=== PATIENT | male | born 1955 | race Caucasian/White ===

== ENCOUNTER 2019-11-19 14:52 | Outpatient (RCR) | payer OTHER, SELFPAY | END 2019-12-10 23:59 | disposition home or self-care (01) | LOC: CR 14:52 | PROVIDERS: Family Provider Internal Medicine; PCP Internal Medicine; Referring Provider Internal Medicine Cardiovascular Disease; Visit Provider Internal Medicine Cardiovascular Disease | DX: I25.10 Atherosclerotic heart disease of native coronary artery without angina pectoris (principal); Z95.5 Presence of coronary angioplasty implant and graft | CPT/HCPCS: 93798 ==

== ENCOUNTER 2019-12-13 | Outpatient (RCR) | payer OTHER, SELFPAY | END 2020-01-20 | disposition home or self-care (01) | LOC: CR | PROVIDERS: PCP Internal Medicine; Visit Provider Internal Medicine Cardiovascular Disease | DX: Z95.5 Presence of coronary angioplasty implant and graft (principal) | CPT/HCPCS: 93798 ==

== ENCOUNTER 2020-03-01 09:31 | Outpatient (CLI) | payer OTHER, SELFPAY ==
--- NOTE | 2020-03-01 09:45 | CT_ITS ---
WS: [id number] CT CERVICAL SPINE HISTORY: Neck pain TECHNIQUE: Contiguous 2.5 mm axial imaging performed through the entire cervical spine. Sagittal and coronal reformats also performed. All CT scans at [facility] use at least one of these do se optimization techniques: automated exposure control; mA and/or kV adjustment per patient size (inc ludes targeted exams where dose is matched to clinical indication); or iterative reconstruction. DLP: 1530.33 mGycm COMPARISON: 11/02/2019 Mild straightening of the normal cervical lordosis. No fractures. Moderate degenerative disc disease at C4-5, C5-6 and C6-7. Large osteophytes extend posteriorly towards the ventral thecal sac. Most sig nificant at the C5-6 level with osteophytes measuring up to 5.1 mm. Craniocervical junction on the la teral masses of C1 and C2 are intact. C2-C3: Osteophytic ridging and facet joint arthritis, greatest on the LEFT. Central shallow disc prot rusion. Moderate LEFT foraminal stenosis. C3-C4: Marked hypertrophy of the LEFT facet joint. Osteophytic ridging around the vertebral bodies wi th severe LEFT and mild RIGHT foraminal stenosis. C4-C5: Marked osteophytic ridging around the vertebral bodies with encroachment upon the ventral thec al sac. There is a shallow central disc protrusion. Mild bilateral facet joint arthritis. Severe cent ral and bilateral foraminal stenosis. C5-C6: Severe osteophytic ridging. Flattening and deformity central canal and cervical cord. Mild fac et joint arthritis. Severe central and bilateral foraminal stenosis. C6-C7: Moderate osteophytic ridging around the vertebral bodies with encroachment upon the ventral th ecal sac. Moderate central and bilateral foraminal stenosis. C7-T1: Mild osteophytic ridging with only mild foraminal stenosis. Soft tissues are normal. Lung apices are clear. CT/CT cervical spin wo con* [id number] IMPRESSION: 1. Severe moderate to severe multilevel stenoses throughout the cervical spine . Similar findings as compared to the MRI from 11/02/2019. 2. Severe central and bilateral foraminal stenosis at C4-5 and C5-6. Predomina ntly due to osteophytic ridging and bony hypertrophy. 3. Moderate central and bilateral foraminal stenosis at C6-7. 4. Moderate LEFT foraminal stenosis at C2-3. 5. Severe LEFT foraminal stenosis at C3-4.
--- NOTE | 2020-03-01 09:45 | XR_ITS ---
WS: [id number] LATERAL CERVICAL SPINE: 3 view. Lateral radiographs are performed in upright neutral, flexion and extension to the patient's toleranc e. HISTORY: Neck pain COMPARISON: None available. C3:1 mm anterolisthesis of C3 on neutral. Anterolisthesis increases to 3.0 mm during flexion and retu rns to normal alignment during extension. Moderate degenerative disc space narrowing with osteophytes at C4-5, C5-6 and C6-7. Osteophytes exten d posteriorly from the vertebral bodies by up to 4 mm. XR/XR cervical spine fl/ex [id number] IMPRESSION: 1. Mild flexion extension instability of C3. 2. Moderate degenerative disc disease and spondylosis at C4-5, C5-6 and C6-7.
== END 2020-03-01 09:32 | disposition home or self-care (01) ==
LOC: RADWPI 09:36
PROVIDERS: Family Provider Internal Medicine; PCP Internal Medicine; Visit Provider Licensed Practical Nurse
DX: M53.2X2 Spinal instabilities, cervical region (principal); M50.30 Other cervical disc degeneration, unspecified cervical region; M47.812 Spondylosis without myelopathy or radiculopathy, cervical region; M48.02 Spinal stenosis, cervical region
CPT/HCPCS: 72040; 72125

== ENCOUNTER 2020-03-13 13:31 | Outpatient (RCR) | payer OTHER, SELFPAY | END 2020-04-09 23:59 | disposition home or self-care (01) | LOC: SPT 13:31 | PROVIDERS: Family Provider Internal Medicine; PCP Internal Medicine; Referring Provider Specialist; Visit Provider Specialist | DX: M50.020 Cervical disc disorder with myelopathy, mid-cervical region, unspecified level (principal) | CPT/HCPCS: 97110; 97150; 97162 ==

== ENCOUNTER → 2020-03-22 09:32 | Outpatient (BNVA) | payer OTHER, SELFPAY | PROVIDERS: Family Provider Internal Medicine; PCP Internal Medicine; Referring Provider Specialist; Visit Provider Anesthesiology Pain Medicine | DX: M43.12 Spondylolisthesis, cervical region (principal); M54.12 Radiculopathy, cervical region; M50.020 Cervical disc disorder with myelopathy, mid-cervical region, unspecified level; M48.02 Spinal stenosis, cervical region; M79.18 Myalgia, other site | CPT/HCPCS: 20553; 99204; J1030; J3490 ==

== ENCOUNTER 2020-04-10 06:00 | Outpatient (RCR) | payer OTHER, SELFPAY | END 2020-05-09 23:59 | disposition home or self-care (01) | LOC: SPT 06:00 | PROVIDERS: PCP Internal Medicine; Visit Provider Specialist | DX: M50.020 Cervical disc disorder with myelopathy, mid-cervical region, unspecified level (principal) | CPT/HCPCS: 97110 ==

== ENCOUNTER → 2020-04-19 09:17 | Outpatient (BNVA) | payer OTHER, SELFPAY | PROVIDERS: PCP Family Medicine; Visit Provider Anesthesiology Pain Medicine | DX: M54.12 Radiculopathy, cervical region (principal); M50.020 Cervical disc disorder with myelopathy, mid-cervical region, unspecified level; M43.12 Spondylolisthesis, cervical region; M48.02 Spinal stenosis, cervical region; M62.830 Muscle spasm of back; M62.838 Other muscle spasm | CPT/HCPCS: 99213 ==

== ENCOUNTER → 2020-06-19 08:44 | Outpatient (BNVA) | payer OTHER, SELFPAY | PROVIDERS: PCP Family Medicine; Visit Provider Anesthesiology Pain Medicine | DX: M54.12 Radiculopathy, cervical region (principal); M50.020 Cervical disc disorder with myelopathy, mid-cervical region, unspecified level; M48.02 Spinal stenosis, cervical region; M43.12 Spondylolisthesis, cervical region; M62.830 Muscle spasm of back; M62.838 Other muscle spasm | CPT/HCPCS: 99213 ==

== ENCOUNTER 2020-11-14 09:37 | Outpatient (RCR) | payer SELFPAY | END 2020-12-10 23:59 | disposition home or self-care (01) | LOC: CR 09:37 | PROVIDERS: PCP Family Medicine; Referring Provider Internal Medicine Cardiovascular Disease; Visit Provider Internal Medicine Cardiovascular Disease | DX: Z95.5 Presence of coronary angioplasty implant and graft (principal) ==

== ENCOUNTER 2020-12-12 09:45 | Outpatient (RCR) | payer SELFPAY | END 2021-01-07 23:59 | disposition home or self-care (01) | LOC: CR 09:45 | PROVIDERS: PCP Family Medicine; Referring Provider Internal Medicine Cardiovascular Disease; Visit Provider Internal Medicine Cardiovascular Disease | DX: Z95.5 Presence of coronary angioplasty implant and graft (principal) ==

== ENCOUNTER 2021-02-13 10:49 | Outpatient (RCR) | payer SELFPAY | END 2021-03-09 23:59 | disposition home or self-care (01) | LOC: CR 10:49 | PROVIDERS: PCP Family Medicine; Referring Provider Internal Medicine Cardiovascular Disease; Visit Provider Internal Medicine Cardiovascular Disease | DX: Z95.5 Presence of coronary angioplasty implant and graft (principal) ==

== ENCOUNTER 2021-03-12 08:57 | Outpatient (RCR) | payer SELFPAY | END 2021-04-09 23:59 | disposition home or self-care (01) | LOC: CR 08:57 | PROVIDERS: PCP Family Medicine; Referring Provider Internal Medicine Cardiovascular Disease; Visit Provider Internal Medicine Cardiovascular Disease | DX: Z95.5 Presence of coronary angioplasty implant and graft (principal) ==

== ENCOUNTER 2021-04-10 13:20 | Outpatient (RCR) | payer SELFPAY | END 2021-05-09 23:59 | disposition home or self-care (01) | LOC: CR 13:20 | PROVIDERS: PCP Family Medicine; Referring Provider Internal Medicine Cardiovascular Disease; Visit Provider Internal Medicine Cardiovascular Disease | DX: Z95.5 Presence of coronary angioplasty implant and graft (principal) ==

== ENCOUNTER 2021-07-20 09:16 | Emergency (ER) | payer OTHER, SELFPAY ==
[2021-07-20 09:21] VITALS: BP 135/84; PULSE 82; RESP 16; TEMP 36.4; O2SAT 98; BMI 30.7
--- NOTE | 2021-07-20 09:38 | CT_ITS ---
WS: [id number] CT ABDOMEN PELVIS TECHNIQUE: Noncontrast CT of the abdomen and pelvis with coronal and sagittal reformatted images. CLINICAL INFORMATION: flank pain COMPARISON: None. DLP: 1528.[address] scans at [facility] use at least one of these dose optimization techniques: automated e xposure control; mA and/or kV adjustment per patient size (includes targeted exams where dose is matc hed to clinical indication); or iterative reconstruction. FINDINGS: Lung bases are well aerated. Small esophageal hiatal hernia. Noncontrast liver and spleen are normal. Fatty atrophy of the pancreas. Adrenal glands are normal. Normal caliber abdominal aorta. Aortic anny cification. No hydronephrosis in either kidney. No obstructing renal or ureteral calculi. Trace perinephric edema can be seen with renal insufficiency. Diffuse bladder wall thickening with surrounding induration suspicious for acute cystitis. Mild indur ation about the bladder. A few tiny locules of air in the anterior bladder may be due to recent instr umentation. Normal sigmoid colon. No evidence of small or large obstruction. Prior appendectomy. Disc space narrowing L5-S1. CT/CT kidney stone [id number] IMPRESSION: 1. No obstructing renal or ureteral calculi. No hydronephrosis. 2. Diffuse bladder wall thickening with mild surrounding induration suspicious for acute cystitis. A few tiny locules of air within the nondependent bladder. Correlation for recent instrumentation. 3. Small esophageal hiatal hernia. 4. Normal caliber abdominal aorta. 5. No other acute findings.
[2021-07-20 10:22] LABS: Basophils % 0.2 %; Eosinophils # 0.1 10^3/uL (0.0-0.8); Eosinophils % 1.2 %; Hematocrit 44.9 % (42.0-52.0); Lymphocytes # 1.3 10^3/uL (0.8-4.8); Mean Corpuscular HGB Conc 33.4 g/dL (30.0-36.0); Mean Corpuscular Hemoglobin 30.9 pg (28.0-34.0); Mean Corpuscular Volume 92.6 fl (80-94); Mean Platelet Volume 10.5 fL (7.4-10.4); Monocytes # 0.6 10^3/uL (0.2-0.9); Monocytes % 5.9 %; Neutrophils # 8.54 10^3/uL (1.8-7.7); Neutrophils % 80.3 %; Nucleated Red Blood Cells % 0 %; Platelet Count 192 10^3/cmm (130-400); Red Blood Count 4.85 10^6/uL (4.1-5.3); Red Cell Distribution Width 13.1 % (12.1-15.1); White Blood Count 10.6 10^3/uL (4.0-10.0)
[2021-07-20 10:35] LABS: Add Urine Microscopic? YES; Bilirubin Urine 1+ (Negative); Blood Urine 3+ (Negative); Glucose Urine UA Norm (Normal); Ketones Urine 1+ (Negative); Leukocyte Esterase Urine 1+ (Negative); Nitrate Urine Negative (Negative); Protein Urine 3+ (Negative); Urine Appearance Bloody (CLEAR); Urine Color Red (Yellow); Urobilinogen Urine 1 mg/dL (Negative); pH Urine 5 (5-7)
[2021-07-20 10:41] LABS: Add Urine Culture? Yes; Bacteria Urine 1+ /hpf; RBC Urine >100 /hpf (0-2); Squamous Epithelial Cell Urine 0-4 /hpf (0-5); WBC Urine 15-25 /hpf (0-5)
[2021-07-20 10:44] LABS: Alanine Aminotransferase 44 U/L (0-41); Albumin Level 4.3 g/dL (3.5-5.2); Alkaline Phosphatase 113 IU/L (40-130); Anion Gap 14.5 (5-19); Aspartate Amino Transferase 32 U/L (0-40); Blood Urea Nitrogen 13 mg/dL (8-23); Calcium 9.1 mg/dL (8.5-10.5); Carbon Dioxide 24 mmol/L (22-29); Chloride 101 mmol/L (98-107); Creatinine Clr Calc Pharmacy 80.9275; Globulin 3.4 g/dL (1.3-4.6); Glucose 164 mg/dL (65-115); Osmolality Calculated 284 mOsm/kg (285-295); Potassium 4.5 mmol/L (3.5-5.1); Sodium 135 mmol/L (136-145); Total Bilirubin 0.6 mg/dL (0.15-1.2); Total Protein 7.7 g/dL (6.6-8.7)
[2021-07-20 11:16] VITALS: BP 133/83; PULSE 70; RESP 18; TEMP 36.9; O2SAT 96
--- NOTE | 2021-07-20 11:26 | ED_ITS ---
HPI - Male Genitourinary General: Chief complaint: Urogenital-Male Stated complaint: BLOOD IN URINE Time Seen by Provider: 07/20/21 09:24 History of Present Illness: HPI Narrative: 65-year-old male presents emergency room with onset of hematuria this morning. He passed a few clots. He has been able to drain his bladder bladder completely. He has a history of BPH for which he is on tamsulosin. [facility] [place] [facility]. He has not had any flank pain or fever he has had some burning and dysuria. He is not recently been on any antibiotics. [facility] PFSH: Medical History (Updated 07/20/21 @ 11:27 by Panfilo Mariano DO) CAD (coronary artery disease) Cervical disc disorder with myelopathy of mid-cervical region Diabetes HTN (hypertension) Hyperlipidemia Ischemic cardiomyopathy Spondylolisthesis of cervical region Stenosis of cervical spine with myelopathy Transaminitis Surgical History S/P coronary angiogram 02/02/2019 Family History Family/Other Cancer Grandfather Cancer Grandmother Cancer Heart disease Mother Heart disease Social History Smoking and tobacco status: former smoker Alcohol intake: never Household members: spouse Marital status: Current occupational status: retired History of recent travel: No Course Vital Signs: Vital signs: Vital Signs Temperature 98.5 F 07/20/21 11:16 Pulse Rate 70 07/20/21 11:16 Respiratory Rate 18 07/20/21 11:16 Blood Pressure 133/83 07/20/21 11:16 Pulse Oximetry 96 07/20/21 11:16 MDM - Male Lab Data: Labs: Lab Results 07/20/21 07/20/21 07/20/21 Range/Units 09:45 10:15 10:15 WBC 10.6 H (4.0-10.0) 10^3/ uL RBC 4.85 (4.1-5.3) 10^6/u L Hgb 15.0 (11.7-16.6) g/dL Hct 44.9 (42.0-52.0) % MCV 92.6 (80-94) fl MCH 30.9 (28.0-34.0) pg MCHC 33.4 (30.0-36.0) g/dL RDW 13.1 (12.1-15.1) % Plt Count 192 (130-400) 10^3/c mm MPV 10.5 H (7.4-10.4) fL Neut % (Auto) 80.3 % Lymph % (Auto) 12.0 % [place] % (Auto) 5.9 % Eos % (Auto) 1.2 % Baso % (Auto) 0.2 % Neut # (Auto) 8.54 H (1.8-7.7) 10^3/u L Lymph # (Auto) 1.3 (0.8-4.8) 10^3/u L [place] # (Auto) 0.6 (0.2-0.9) 10^3/u L Eos # (Auto) 0.1 (0.0-0.8) 10^3/u L Baso # (Auto) 0.0 (0.0-0.1) 10^3/u L Nucleated RBC % (a uto) 0 % Nucleated RBCs # 0.0 /100WBC Sodium 135 L (136-145) mmol/L Potassium 4.5 (3.5-5.1) mmol/L Chloride 101 (98-107) mmol/L Carbon Dioxide 24 (22-29) mmol/L Anion Gap 14.5 (5-19) BUN 13 (8-23) mg/dL Creatinine 1.0 (0.7-1.2) mg/dL GFR Calculation 75.0 L (90-130) mL/min Glucose 164 H (65-115) mg/dL Calculated Osmolal ity 284 L (285-295) mOsm/k g Calcium 9.1 (8.5-10.5) mg/dL Total Bilirubin 0.6 (0.15-1.2) mg/dL AST 32 (0-40) U/L ALT 44 H (0-41) U/L Alkaline Phosphata se 113 (40-130) IU/L Total Protein 7.7 (6.6-8.7) g/dL Albumin 4.3 (3.5-5.2) g/dL Globulin 3.4 (1.3-4.6) g/dL Urine Color Red (Yellow) Urine Appearance Bloody A (CLEAR) Urine pH 5 (5-7) Ur Specific Gravit y 1.020 (1.005-1.030) Urine Protein 3+ H (Negative) Urine Glucose (UA) Norm (Normal) Urine Ketones 1+ H (Negative) Urine Blood 3+ H (Negative) Urine Nitrate Negative (Negative) Urine Bilirubin 1+ H (Negative) Urine Urobilinogen 1 H (Negative) mg/dL Ur Leukocyte Rose ase 1+ H (Negative) Urine RBC >100 H (0-2) /hpf Urine WBC 15-25 H (0-5) /hpf Ur Squamous Epith Cells 0-4 H (0-5) /hpf Amorphous Sediment Not Reportable Urine Bacteria 1+ H (NONE) /hpf Discharge Plan Discharge Patient Disposition: Home Clinical Impression: Urinary tract infection, Hematuria, Benign prostatic hyperplasia Condition: Stable Prescriptions: New ciprofloxacin HCl 500 mg tablet 500 mg PO BID Qty: 20 RF: 0 No Action lisinopril 10 mg tablet 5 mg PO BID RF: 0 gabapentin 800 mg tablet 800 mg PO TID Qty: 90 RF: 3 aspirin [Adult Low Dose Aspirin] 81 mg tablet,delayed release (DR/EC) 81 mg PO BEDTIME RF: 0 fluticasone propionate 50 mcg/actuation spray,suspension 2 spray INTRANASAL BEDTIME RF: 0 lidocaine 5 % adhesive patch,medicated 1 - 2 patch TOPICAL DIRECTED RF: 0 nitroglycerin 0.4 mg tablet, sublingual 0.4 mg SUBLINGUAL Q5M PRN (Reason: Chest Pain) RF: 0 chlorpheniramine maleate [Aller-Chlor] 4 mg tablet 16 mg PO BID RF: 0 pantoprazole 40 mg tablet,delayed release (DR/EC) 40 mg PO BID RF: 0 clopidogrel 75 mg tablet 75 mg PO QAM RF: 0 tamsulosin 0.4 mg capsule 0.4 mg PO BEDTIME RF: 0 cholecalciferol (vitamin D3) 25 mcg (1,000 unit) capsule 75 mcg PO BEDTIME RF: 0 rosuvastatin 10 mg tablet 10 mg PO .every other day RF: 0 propranolol 80 mg Tablet 80 mg PO QAM RF: 0 glipizide 10 mg Tablet 10 mg PO BID RF: 0 CoQ-10 100 mg Capsule 100 mg PO BEDTIME RF: 0 Discharge Orders: Discharge ED (Routine); Ordered 07/20/21 Ordered By: Panfilo Mariano Referrals: Marcelina Coates MD [Primary Care Provider] - Discharge Diet: Usual diet Discharge Activity: Resume usual activity Patient Instructions: Opioid Safety Activity Restrictions/Additional Instructions: Follow-up with your primary care doctor if not improving. If you are unable to empty your bladder return to the emergency room. Coding Level of Care Code ED Notched Blade Loader for Emre Saeed
[2021-07-20 12:23] VITALS: BP 125/71; PULSE 61; O2SAT 96
== END 2021-07-20 12:24 | disposition home or self-care (01) ==
PROVIDERS: Emergency Provider Family Medicine; PCP Family Medicine
DX: N39.0 Urinary tract infection, site not specified (principal); R31.9 Hematuria, unspecified; N40.0 Benign prostatic hyperplasia without lower urinary tract symptoms; Z79.84 Long term (current) use of oral hypoglycemic drugs; Z79.02 Long term (current) use of antithrombotics/antiplatelets; Z79.82 Long term (current) use of aspirin; I25.10 Atherosclerotic heart disease of native coronary artery without angina pectoris; E11.9 Type 2 diabetes mellitus without complications; I10 Essential (primary) hypertension; E78.5 Hyperlipidemia, unspecified; Z87.891 Personal history of nicotine dependence
CPT/HCPCS: 74176; 80053; 81001; 85025; 87077; 87086; 87186; 99283

== ENCOUNTER → 2022-07-09 13:39 | Outpatient (BNVA) | payer OTHER, SELFPAY | PROVIDERS: PCP Family Medicine; Visit Provider Internal Medicine Cardiovascular Disease | DX: I25.10 Atherosclerotic heart disease of native coronary artery without angina pectoris (principal); I25.5 Ischemic cardiomyopathy; I10 Essential (primary) hypertension; E78.2 Mixed hyperlipidemia; E11.9 Type 2 diabetes mellitus without complications; Z79.84 Long term (current) use of oral hypoglycemic drugs; R74.01 Elevation of levels of liver transaminase levels; Z87.891 Personal history of nicotine dependence | CPT/HCPCS: 99214 ==

== ENCOUNTER → 2023-01-14 13:34 | Outpatient (BNVA) | payer OTHER, SELFPAY | PROVIDERS: PCP Family Medicine; Visit Provider Podiatrist Foot & Ankle Surgery | DX: M20.41 Other hammer toe(s) (acquired), right foot (principal) | CPT/HCPCS: 99203 ==

== ENCOUNTER 2023-04-11 09:44 | Outpatient (CLI) | payer OTHER, SELFPAY ==
--- NOTE | 2023-04-11 10:10 | XR_ITS ---
WS: [id number] Exam: XR cervical spine 3V* [id number] Date/Time of Exam: 04/11/2023 10:11 AM Reason For Exam: NECK PAIN Comparison 03/01/2020. Posterior fusion of the cervical spine extending from C2 to C6. Degenerative disc narrowing at C4-5 C 5-6 and C6-7. Spondylosis at these areas. Anterior cervical soft tissues are unremarkable. No sign of the hardware failure. The odontoid is intact. XR/XR cervical spine 3V* [id number] IMPRESSION: 1. Stable-appearing posterior C-spine fusion from C2 to C6.. 2. Degenerative changes. No fracture or malalignment.
== END 2023-04-11 09:45 | disposition home or self-care (01) ==
PROVIDERS: PCP Family Medicine; Visit Provider Surgery
DX: M54.2 Cervicalgia (principal); Z98.1 Arthrodesis status; M43.02 Spondylolysis, cervical region
CPT/HCPCS: 72040

== ENCOUNTER 2023-08-05 15:23 | Outpatient (CLI) | payer OTHER, SELFPAY ==
--- NOTE | 2023-08-05 15:30 | XR_ITS ---
WS: [id number] Cervical spine, 3 views, 08/05/2023 Clinical Data: NECK PAIN Comparison: Cervical spine, 04/11/2023 Findings: The posterior cervical fusion from C2-C6 with bilateral pedicle screws and connecting rods remains stable. There is degenerative disc narrowing at C4-C5, C5-C6 and C6-C7. There is anterior ost eoarthritic change from C4 through C7. Impression: Stable posterior cervical fusion.
== END 2023-08-05 15:24 | disposition home or self-care (01) ==
PROVIDERS: PCP Family Medicine; Visit Provider Nurse Practitioner Family
DX: M54.2 Cervicalgia (principal); Z98.1 Arthrodesis status
CPT/HCPCS: 72040

== ENCOUNTER → 2023-08-13 15:32 | Outpatient (BNVA) | payer OTHER, SELFPAY | PROVIDERS: PCP Family Medicine; Visit Provider Internal Medicine Cardiovascular Disease | DX: I25.10 Atherosclerotic heart disease of native coronary artery without angina pectoris (principal); I25.5 Ischemic cardiomyopathy; I10 Essential (primary) hypertension; E78.2 Mixed hyperlipidemia; E11.9 Type 2 diabetes mellitus without complications; Z87.891 Personal history of nicotine dependence; Z79.84 Long term (current) use of oral hypoglycemic drugs | CPT/HCPCS: 99214 ==

== ENCOUNTER → 2023-12-08 13:21 | Outpatient (BNVA) | payer OTHER, SELFPAY | PROVIDERS: PCP Family Medicine; Referring Provider Family Medicine; Visit Provider Surgery | DX: Z12.11 Encounter for screening for malignant neoplasm of colon (principal) | CPT/HCPCS: 99203 ==

== ENCOUNTER 2024-01-15 06:52 | Day surgery (SDC) | payer OTHER, SELFPAY ==
--- NOTE | 2024-01-15 06:41 | W.PM.OPSFHP ---
Same Day Surgery H&P Indication for Procedure/HPI DATE OF PROCEDURE: January 15, 2024 CHIEF COMPLAINT/INDICATIONFOR SURGICAL PROCEDURE: need for screening colonoscopy PREOP DIAGNOSIS: need for screening colonoscopy PLANNED PROCEDURE: Operation Date: 01/15/24 08:35 [place] Procedures p [address] colon G0105 screen colon H risk Z12.11(Not Applicable) - Jimmie Hsu MD Medications/Allergies* Home Medications Medication Instructions Recorded Confirmed Type chlorpheniramine maleate 4 mg 12 mg PO BID 11/16/19 01/13/24 History tablet (Aller-Chlor) clopidogrel 75 mg tablet 75 mg PO QAM 11/16/19 01/13/24 History lidocaine 5 % topical patch 1 - 2 patch topical DIRECTED 11/16/19 01/13/24 History PRN Pain lisinopril 10 mg tablet 5 mg PO BEDTIME 11/16/19 01/13/24 History nitroglycerin 0.4 mg sublingual 0.4 mg sublingual Q5M PRN Chest 11/16/19 01/13/24 History tablet Pain pantoprazole 40 mg tablet,delayed 40 mg PO BID 11/16/19 01/13/24 History release rosuvastatin 10 mg tablet 5 mg PO BEDTIME 07/10/21 01/13/24 History coenzyme Q10 100 mg capsule 100 mg PO BEDTIME 07/20/21 01/13/24 History (CoQ-10) propranolol 80 mg tablet 80 mg PO QAM 07/20/21 01/13/24 History milk thistle 175 mg tablet 175 mg PO DAILY 07/09/22 01/13/24 History fluticasone propionate 50 2 spray intranasal BEDTIME PRN 08/13/23 01/13/24 History mcg/actuation nasal Nasal Congestion spray,suspension glipizide 10 mg tablet 5 mg PO .SUPPER 08/13/23 01/13/24 History tamsulosin 0.4 mg capsule 0.4 mg PO DAILY 08/13/23 01/13/24 History Allergies/Adverse Reactions Allergy/AdvReac Type Severity Reaction Status Date / Time ezetimibe [From Zetia] Allergy Unknown Verified 12/08/23 13:26 Xbjoifv-VEL-GqY Reductase AdvReac MUSCLE Verified 12/08/23 13:26 Inhibitor CRAMPS AND [Onhjnic-Wfj-Olo Reductase ACHES Inhibitor] Pertinent History/Comorbid Conditions* Medical History (Updated 01/18/23 @ 20:59 by Brain Che DPM) Transaminitis Spondylolisthesis of cervical region 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 Ischemic cardiomyopathy HTN (hypertension) CAD (coronary artery disease) Hyperlipidemia Diabetes Surgical History (Updated 11/16/19 @ 11:04 by Petra Hebert MD) S/P coronary angiogram 02/02/2019 Family History (Updated 02/16/20 @ 10:04 by Cadence Vega LPN) Heart disease Grandmother Mother Cancer Family/Other Grandfather Grandmother Social History Smoking and tobacco/nicotine status: former use of tobacco/nicotine Alcohol intake: never Substance/Drug Use: never Household members: spouse Marital status: Current occupational status: retired Pertinent Exam Findings alert, oriented x 3, clear to auscultation bilaterally and regular rate & rhythm Recommendations Surgery/Procedure today Coding Level of Care Code Acute Code for Chg Fwd
[2024-01-15 07:04] VITALS: BP 128/82; PULSE 110; RESP 16; TEMP 36.1; O2SAT 98; BMI 28.8
[2024-01-15] MEDS: sodium chloride 0.9% 1,000 ML 30 ML IV (07:11)
[2024-01-15 07:14] LABS: Glucose Point of Care 141 mg/dL (70-110)
--- NOTE | 2024-01-15 07:17 | P.ANESASSM_ITS ---
Documented by User: Vicenta Hicks CRNA 01/15/24 07:30 Pre-Anesthetic Assessment Height/Weight: Height 1.73 m Weight 86.183 kg Temp Pulse Resp BP Pulse Ox O2 Del Method 97.0 F L 110 H 16 128/82 98 Room Air 01/15/24 07:04 01/15/24 07:04 01/15/24 07:04 01/15/24 07:04 01/15/24 07:04 01/15/24 07:04 Preop Diagnosis: need for screening colonoscopy Operation Date: 01/15/24 08:35 Proposed Procedures p [id number] colon G0105 screen colon H risk Z12.11(Not Applicable) - Jimmie Hsu MD Familial anesthetic complications: None Was Beta Bekah taken within 24 hours: Yes Was Clonidine taken within 24 hours: N/A Last intake: Intake Last Liquid Date 01/14/24 Last Liquid Time 21:00 Last Solid Date 01/13/24 Last Solid Time 20:00 Exam alert, oriented x 3 and clear to auscultation bilaterally Airway Submandibular: within normal limits Cervical ROM: Other (Spondylolisthesis of cervical region 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) Mallampati: Class II History/ROS No significant history except as noted CV/HEM Coronary Artery Disease, Hypertension and Myocardial Infarction ischemic cardiomyopathy Mi 2009 with stent Metabolic Diabetes Mellitus managed with po medication [facility] [place] Osteoarthritis/DJD Anesthetic Plan Anesthesia: MAC Medications/Allergies Home Medications Medication Instructions Recorded Confirmed Last Taken Type chlorpheniramine maleate 4 mg 12 mg PO BID 11/16/19 01/15/24 01/14/24 History tablet (Aller-Chlor) clopidogrel 75 mg tablet 75 mg PO QAM 11/16/19 01/13/24 01/06/24 History lidocaine 5 % topical patch 1 - 2 patch topical DIRECTED 11/16/19 01/13/24 01/13/24 History PRN Pain lisinopril 10 mg tablet 5 mg PO BEDTIME 11/16/19 01/15/24 01/14/24 History nitroglycerin 0.4 mg sublingual 0.4 mg sublingual Q5M PRN Chest 11/16/19 01/13/24 Unknown History tablet Pain pantoprazole 40 mg tablet,delayed 40 mg PO BID 11/16/19 01/15/24 01/14/24 History release gabapentin 800 mg tablet 800 mg PO TID pain #90 tabs 06/19/20 01/15/24 01/14/24 Rx rosuvastatin 10 mg tablet 5 mg PO BEDTIME 07/10/21 01/15/24 01/14/24 History coenzyme Q10 100 mg capsule 100 mg PO BEDTIME 07/20/21 01/13/24 01/13/24 History (CoQ-10) propranolol 80 mg tablet 80 mg PO QAM 07/20/21 01/15/24 01/14/24 History milk thistle 175 mg tablet 175 mg PO DAILY 07/09/22 01/15/24 01/14/24 History fluticasone propionate 50 2 spray intranasal BEDTIME PRN 08/13/23 01/13/24 Unknown History mcg/actuation nasal Nasal Congestion spray,suspension glipizide 10 mg tablet 5 mg PO .SUPPER 08/13/23 01/15/24 01/14/24 History tamsulosin 0.4 mg capsule 0.4 mg PO DAILY 08/13/23 01/15/24 01/14/24 History Allergies Allergy/AdvReac Type Severity Reaction Status Date / Time ezetimibe [From Zetia] Allergy Unknown Verified 12/08/23 13:26 Rxldbor-ZZQ-DaM Reductase AdvReac MUSCLE Verified 12/08/23 13:26 Inhibitor CRAMPS AND [Ylsiklt-Jqh-Kxb Reductase ACHES Inhibitor] Current Medications Generic Name Dose Route Start Last Admin Trade Name Freq PRN Reason Stop Dose Admin Sodium Chloride 1,000 mls @ 30 mls/hr 01/15/24 07:00 01/15/24 07:11 Sodium Chloride 0.9% IV 30 mls/hr .Q24H YARI Administration PFSH Anesthesia Medical History (Updated 12/08/23 @ 13:[address]) Transaminitis Spondylolisthesis of cervical region 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 Documented by User: Alexis Paulson 01/15/24 07:46 Pre-Anesthetic Assessment Airway Comments: Comments: Hx neck fusion. Limited extension. CV/HEM ischemic cardiomyopathy Coronary stents placed 2010 x 1 and 2019 x 1. Denies angina Anesthetic Plan ASA status: 3 Risk of > 500 ml blood loss (7ml/kg in children): No Medications/Allergies Home Medications Medication Instructions Recorded Confirmed Last Taken Type chlorpheniramine maleate 4 mg 12 mg PO BID 11/16/19 01/15/24 01/14/24 History tablet (Aller-Chlor) clopidogrel 75 mg tablet 75 mg PO QAM 11/16/19 01/13/24 01/06/24 History lidocaine 5 % topical patch 1 - 2 patch topical DIRECTED 11/16/19 01/13/24 01/13/24 History PRN Pain lisinopril 10 mg tablet 5 mg PO BEDTIME 11/16/19 01/15/24 01/14/24 History nitroglycerin 0.4 mg sublingual 0.4 mg sublingual Q5M PRN Chest 11/16/19 01/13/24 Unknown History tablet Pain pantoprazole 40 mg tablet,delayed 40 mg PO BID 11/16/19 01/15/24 01/14/24 History release gabapentin 800 mg tablet 800 mg PO TID pain #90 tabs 06/19/20 01/15/24 01/14/24 Rx rosuvastatin 10 mg tablet 5 mg PO BEDTIME 07/10/21 01/15/24 01/14/24 History coenzyme Q10 100 mg capsule 100 mg PO BEDTIME 07/20/21 01/13/24 01/13/24 History (CoQ-10) propranolol 80 mg tablet 80 mg PO QAM 07/20/21 01/15/24 01/14/24 History milk thistle 175 mg tablet 175 mg PO DAILY 07/09/22 01/15/24 01/14/24 History fluticasone propionate 50 2 spray intranasal BEDTIME PRN 08/13/23 01/13/24 Unknown History mcg/actuation nasal Nasal Congestion spray,suspension glipizide 10 mg tablet 5 mg PO .SUPPER 08/13/23 01/15/24 01/14/24 History tamsulosin 0.4 mg capsule 0.4 mg PO DAILY 08/13/23 01/15/24 01/14/24 History Allergies Allergy/AdvReac Type Severity Reaction Status Date / Time ezetimibe [From Zetia] Allergy Unknown Verified 12/08/23 13:26 Pebuyea-NJM-VbP Reductase AdvReac MUSCLE Verified 12/08/23 13:26 Inhibitor CRAMPS AND [Zpzsxpp-Zmr-Oes Reductase ACHES Inhibitor] PFS Anesthesia Medical History (Updated 12/08/23 @ 13:[address]) Transaminitis Spondylolisthesis of cervical region 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
[2024-01-15 08:14] VITALS: BP 107/72; PULSE 88; RESP 16; TEMP 36.1; O2SAT 95
[2024-01-15 08:30] VITALS: BP 103/80; PULSE 82; RESP 18; O2SAT 99
[2024-01-15 08:46] VITALS: BP 123/81; PULSE 74; RESP 18; O2SAT 97
--- NOTE | 2024-01-15 20:11 | ANE.PACU2 ---
Inpatient post-anesthesia follow up: Airway intact: Yes Vital signs: Temperature 97 F Pulse Rate 74 Respiratory Rate 18 Blood Pressure 123/81 Pulse Oximetry 97 Oxygen Delivery Me thod Room Air Oxygen Flow Rate 2 Fraction of Inspir ed Oxygen Hydration adequate: Yes Nausea and vomiting: No Pain level: 1 Mental status: Baseline
== END 2024-01-15 09:00 | disposition home or self-care (01) ==
PROVIDERS: PCP Family Medicine; Visit Provider Surgery
PROC: 0DJD8ZZ Inspection of Lower Intestinal Tract, Via Natural or Artificial Opening Endoscopic (ICD-10-PCS; CPT 45378; principal; 2024-01-15 08:35)
DX: Z12.11 Encounter for screening for malignant neoplasm of colon (principal); D12.2 Benign neoplasm of ascending colon; D12.5 Benign neoplasm of sigmoid colon; D12.3 Benign neoplasm of transverse colon; I10 Essential (primary) hypertension; I25.10 Atherosclerotic heart disease of native coronary artery without angina pectoris; E78.5 Hyperlipidemia, unspecified; E11.9 Type 2 diabetes mellitus without complications; Z87.891 Personal history of nicotine dependence; I25.2 Old myocardial infarction
CPT/HCPCS: 36416; 45380; 45385; 82962; 88305; J2371; J2704; J7030

== ENCOUNTER → 2024-01-27 13:48 | Outpatient (BNVA) | payer OTHER, SELFPAY | PROVIDERS: PCP Family Medicine; Visit Provider Surgery | DX: Z09 Encounter for follow-up examination after completed treatment for conditions other than malignant neoplasm (principal) | CPT/HCPCS: 99213 ==

== ENCOUNTER 2024-03-04 08:57 | Outpatient (CLI) | payer OTHER, SELFPAY ==
[2024-03-04 09:14] VITALS: PULSE 75; RESP 18; O2SAT 99
[2024-03-04] MEDS: albuterol 2.5 mg/3 mL Neb INHALATION (09:14)
[2024-03-04 09:18] VITALS: PULSE 75
== END 2024-03-04 08:58 | disposition home or self-care (01) ==
PROVIDERS: PCP Family Medicine; Visit Provider Nurse Practitioner Family
DX: J44.9 Chronic obstructive pulmonary disease, unspecified (principal)
CPT/HCPCS: 94060; J7613